=== PATIENT | male | born 1955 | race Caucasian/White ===

== ENCOUNTER 2016-09-07 12:58 | Emergency (ER) | payer OTHER ==
[2016-09-07] MEDS ORDERED: Diphtheria,Pertussis(Acell),Tetanus Vaccine 0.5 ML Syringe IM ONE (13:15)
--- NOTE | 2016-09-07 13:16 | EDM.PDOC ---
ED HPI GENERAL MEDICAL PROBLEM - General Chief Complaint: Laceration Stated Complaint: LACERATION RT HAND Time Seen by Provider: 09/07/16 13:01 Source of Information: Reports: Patient History Limitations: Reports: No Limitations - History of Present Illness INITIAL COMMENTS - FREE TEXT/NARRATIVE: History of present illness: []Patient was trying to install a road sign in automatic screwdriver lacerated his hand between his right index finger and thumb Review of systems: As per history of present illness and below otherwise all systems reviewed and negative. Past medical history: As per history of present illness and as reviewed below otherwise noncontributory. Surgical history: As per history of present illness and as reviewed below otherwise noncontributory. Social history: No reported history of drug or alcohol abuse. Family history: As per history of present illness and as reviewed below otherwise noncontributory. Physical exam: General: Well developed, well nourished in NAD HEENT: Atraumatic, normocephalic, pupils reactive, negative for conjunctival pallor or scleral icterus, mucous membranes moist, throat clear, neck supple, nontender, trachea midline. Lungs: Clear to auscultation, breath sounds equal bilaterally, chest nontender. Heart: S1S2, regular, negative for clicks, rubs, or JVD. Abdomen: Soft, nondistended, nontender. Negative for masses or hepatosplenomegaly. Negative for costovertebral tenderness. Pelvis: Stable nontender. Genitourinary: Deferred. Rectal: Deferred. Extremities: Right hand with a irregular laceration to the subcutaneous tissue between the thumb and index finger., negative for cords or calf pain. Neurovascular unremarkable. Neuro: Awake, alert, oriented. Cranial nerves II through XII unremarkable. Cerebellum unremarkable. Motor and sensory unremarkable throughout. Exam nonfocal. Diagnostics: [] Therapeutics: []Laceration sutured, tetanus given Impression: []Laceration right hand Plan: []Sutures out in 7-10 days return if any signs of infection occur Definitive disposition and diagnosis as appropriate pending reevaluation and review of above. - Related Data Allergies Allergy/AdvReac Type Severity Reaction Status Date / Time No Known Allergies Allergy Verified 09/07/16 13:06 Home Meds: Home Meds Allopurinol [Zyloprim] 300 mg PO DAILY 09/07/16 [History] Gemfibrozil 600 mg PO BID 09/07/16 [History] Lisinopril 20 mg PO DAILY 09/07/16 [History] Simvastatin [Zocor] 20 mg PO BEDTIME 09/07/16 [History] ED ROS GENERAL - Review of Systems Review Of Systems: See Below (See history of present illness) ED EXAM, SKIN/RASH Exam: See Below (See history of present illness) ED SKIN PROCEDURES - Laceration/Wound Repair Right Hand Lac/Wound length In cm: 1.5 Appearance: Subcutaneous Distal NVT: Neuro & Vascular Intact Anesthetic Type: Local Local Anesthesia - Lidocaine (Xylocaine): 1% Plain Local Anesthesia - Bupivicaine (Marcaine): 0.5% Plain Local Anesthetic Volume: 1cc Skin Prep: Saline Closed with: Sutures (5-0 nylon well tolerated) Suture Size: other Drain Placement: No Sterile Dressing Applied: Nurse Tetanus Status Addressed: Yes Complications: No Course - Vital Signs Last Recorded V/S: Last Vital Signs Temp 36.2 C 09/07/16 13:08 Pulse 74 09/07/16 13:08 Resp 18 09/07/16 13:08 BP 154/75 H 09/07/16 13:08 Pulse Ox 96 09/07/16 13:08 - Orders/Labs/Meds Orders: Active Orders 24 hr Category Date Time Status Vaccines to be Administered [RC] PER UNIT ROUTINE Care 09/07/16 13:15 Active Meds: Medications Discontinued Medications Generic Name Dose Route Start Last Admin Trade Name Freq PRN Reason Stop Dose Admin Bacitracin 1 dose 09/07/16 13:23 Bacitracin Oint 1 Gm TOP 09/07/16 13:24 ONETIME ONE Bupivacaine HCl 10 ml 09/07/16 13:19 09/07/16 13:29 Sensorcaine-Mpf 0.5% INJECT 09/07/16 13:20 10 ml ONETIME ONE Administration Diphtheria/Tetanus/Acell Pertussis 0.5 ml 09/07/16 13:15 09/07/16 13:33 Adacel IM 09/07/16 13:16 0.5 ml .ONCE ONE Administration Lidocaine HCl 20 ml 09/07/16 13:19 09/07/16 13:29 Xylocaine 1% INJECT 09/07/16 13:20 20 ml ONETIME ONE Administration Departure - Departure Time of Disposition: 13:43 Disposition: Home, Self-Care 01 Condition: Good Clinical Impression: Laceration of right hand Qualifiers: Encounter type: initial encounter Foreign body presence: without foreign body Qualified Code(s): S61.411A - Laceration without foreign body of right hand, initial encounter - Discharge Information Referrals: PCP,None [Primary Care Provider] - Forms: ED Department Discharge Additional Instructions: The following information is given to patients seen in the emergency department who are being discharged to home. This information is to outline your options for follow-up care. We provide all patients seen in our emergency department with a follow-up referral. The need for follow-up, as well as the timing and circumstances, are variable depending upon the specifics of your emergency department visit. If you don't have a primary care physician on staff, we will provide you with a referral. We always advise you to contact your personal physician following an emergency department visit to inform them of the circumstance of the visit and for follow-up with them and/or the need for any referrals to a consulting specialist. The emergency department will also refer you to a specialist when appropriate. This referral assures that you have the opportunity for follow-up care with a specialist. All of these measure are taken in an effort to provide you with optimal care, which includes your follow-up. Under all circumstances we always encourage you to contact your private physician who remains a resource for coordinating your care. When calling for follow-up care, please make the office aware that this follow-up is from your recent emergency room visit. If for any reason you are refused follow-up, please contact the [facility] Emergency Department at and asked to speak to the emergency department charge nurse. Keep wound dry for 24 hours, Tylenol, ice or Motrin for pain elevate for swelling sutures out in 7-10 days come to the ER for this or go to your primary care. [facility] [address] [place] [id number] - My Orders Last 24 Hours: My Active Orders 09/07/16 13:15 Vaccines to be Administered [RC] PER UNIT ROUTINE - Assessment/Plan Last 24 Hours: My Active Orders 09/07/16 13:15 Vaccines to be Administered [RC] PER UNIT ROUTINE
[2016-09-07] MEDS ORDERED: Lidocaine 1% 20 ML MDV INJECT ONE (13:19)
[2016-09-07] MEDS ORDERED: Bupivacaine 0.5% 10 ML SDV INJECT ONE (13:19)
[2016-09-07] MEDS ORDERED: Bacitracin Oint 1 GM U/D Packet TOP ONE (13:23)
[2016-09-07 14:41] VITALS: BP 113/63
== END 2016-09-07 14:20 | disposition home or self-care (01) ==
LOC: MW.ED 12:58
DX: S61.411A Laceration without foreign body of right hand, initial encounter (principal); Z79.899 Other long term (current) drug therapy; Z23 Encounter for immunization; W27.0XXA Contact with workbench tool, initial encounter
CPT/HCPCS: 12001; 90471; 90715; 99282; 99283-25

== ENCOUNTER 2016-09-14 07:16 | Emergency (ER) | payer OTHER | END 2016-09-14 07:35 | disposition left against medical advice (07) | LOC: MW.ED 07:16 | DX: Z53.21 Procedure and treatment not carried out due to patient leaving prior to being seen by health care provider (principal) ==

== ENCOUNTER 2016-09-17 06:55 | Emergency (ER) | payer OTHER | END 2016-09-17 07:20 | disposition left against medical advice (07) | LOC: MW.ED 06:55 | DX: Z53.21 Procedure and treatment not carried out due to patient leaving prior to being seen by health care provider (principal) ==

== ENCOUNTER 2016-10-04 10:53 | Emergency (ER) | payer OTHER ==
[2016-10-04] MEDS ORDERED: Lidocaine 1% 20 ML MDV INJECT ONE (11:26)
[2016-10-04] MEDS ORDERED: Bacitracin Oint 1 GM U/D Packet TOP ONE (11:26)
--- NOTE | 2016-10-04 11:27 | EDM.PDOC ---
ED HPI GENERAL MEDICAL PROBLEM - General Chief Complaint: Laceration Stated Complaint: INJURY FINGERS ON LT HAND Time Seen by Provider: 10/04/16 11:20 Source of Information: Reports: Patient - History of Present Illness INITIAL COMMENTS - FREE TEXT/NARRATIVE: HISTORY AND PHYSICAL: History of present illness: [Patient is a 60-year-old male that presents to the emergency room today with complaints of a laceration to his left medial fifth digit. 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 Patient was seen 2 weeks ago in the emergency room for a laceration, therefore his tetanus is up-to-date. ] Review of systems: As per history of present illness and below otherwise all systems reviewed and negative. Past medical history: As per history of present illness and as reviewed below otherwise noncontributory. Surgical history: As per history of present illness and as reviewed below otherwise noncontributory. Social history: No reported history of drug or alcohol abuse. Family history: As per history of present illness and as reviewed below otherwise noncontributory. Physical exam: Gen.: Well-developed well-nourished male. Speaking in full sentences. HEENT: Atraumatic, normocephalic, pupils reactive, negative for conjunctival pallor or scleral icterus, mucous membranes moist, throat clear, neck supple, nontender, trachea midline. Lungs: Clear to auscultation, breath sounds equal bilaterally, chest nontender. Heart: S1S2, regular, negative for clicks, rubs, or JVD. Abdomen: Soft, nondistended, nontender. Negative for masses or hepatosplenomegaly. Negative for costovertebral tenderness. Pelvis: Stable nontender. Genitourinary: Deferred. Rectal: Deferred. Extremities: 2-1/2 cm laceration to the left medial fifth digit at MCP. No current bleeding. No tendon involvement noted. Patient is able to grasp, and fully extend all digits without difficulty. No numbness or tingling noted. Neurovascular unremarkable. Neuro: Awake, alert, oriented. Cranial nerves II through XII unremarkable. Cerebellum unremarkable. Motor and sensory unremarkable throughout. Exam nonfocal. Diagnostics: [L 5th finger xray] Therapeutics: [1% lidocaine for injection Bacitracin] Impression: [L 5th finger laceration] Plan: [Rx written for cephalexin 500mg (#15) si po TID 0 RF's. Return to ER in 7- 10 days for suture removal. Strict return precautions are discussed. ] Definitive disposition and diagnosis as appropriate pending reevaluation and review of above. Onset: Today Onset Date: 10/04/16 Onset Time: 10:30 Duration: Minutes: Location: Reports: Upper Extremity, Left - Related Data Allergies Allergy/AdvReac Type Severity Reaction Status Date / Time No Known Allergies Allergy Verified 09/17/16 07:03 Home Meds: Home Meds Allopurinol [Zyloprim] 300 mg PO DAILY 09/07/16 [History] Gemfibrozil 600 mg PO BID 09/07/16 [History] Lisinopril 20 mg PO DAILY 09/07/16 [History] Simvastatin [Zocor] 20 mg PO BEDTIME 09/07/16 [History] Past Medical History - Past Health History Medical/Surgical History: Denies Medical/Surgical History HEENT History: Reports: Hard of Hearing, Other (See Below) Other HEENT History: hEARING LOSS Cardiovascular History: Reports: High Cholesterol, Hypertension Musculoskeletal History: Reports: Gout Endocrine/Metabolic History: Reports: Obesity/BMI 30+ Social & Family History - Family History Family Medical History: Noncontributory - Tobacco Use Smoking Status *Q: Former Smoker Used Tobacco, but Quit: Yes Month Tobacco Last Used: 09/1999 - Caffeine Use Caffeine Use: Reports: Soda - Recreational Drug Use Recreational Drug Use: No ED ROS GENERAL - Review of Systems Review Of Systems: ROS reveals no pertinent complaints other than HPI. ED EXAM, SKIN/RASH Exam: See Below (See history of present illness) ED SKIN PROCEDURES - Laceration/Wound Repair Left Lower Medial Finger Lac/Wound length In cm: 2.5 Appearance: Subcutaneous, Linear Anesthetic Type: Local Local Anesthesia - Lidocaine (Xylocaine): 1% Plain Local Anesthetic Volume: 4cc Skin Prep: Chlorhexidine (Hibiciens), Saline, Sterile Drape Exploration/Debridement/Repair: Wound Explored, In a Bloodless Field Closed with: Sutures Suture Size: 4-0 # of Sutures: 5 Suture Type: Nylon, Interrupted Sterile Dressing Applied: Nurse Tetanus Status Addressed: Yes Complications: No Course - Vital Signs Last Recorded V/S: Last Vital Signs Temp 96.5 F 10/04/16 11:01 Pulse 75 10/04/16 11:01 Resp 18 10/04/16 11:01 BP 158/84 H 10/04/16 11:01 Pulse Ox 95 10/04/16 11:01 - Orders/Labs/Meds Meds: Medications Discontinued Medications Generic Name Dose Route Start Last Admin Trade Name Nicolas PRN Reason Stop Dose Admin Bacitracin 1 dose 10/04/16 11:26 10/04/16 11:30 Bacitracin Oint 1 Gm TOP 10/04/16 11:27 1 dose ONETIME ONE Administration Lidocaine HCl 20 ml 10/04/16 11:26 10/04/16 11:30 Xylocaine 1% INJECT 10/04/16 11:27 20 ml ONETIME ONE Administration Departure - Departure Time of Disposition: 12:05 Disposition: Home, Self-Care 01 Condition: Good Clinical Impression: Finger laceration - Discharge Information Forms: ED Department Discharge Additional Instructions: The following information is given to patients seen in the emergency department who are being discharged to home. This information is to outline your options for follow-up care. We provide all patients seen in our emergency department with a follow-up referral. The need for follow-up, as well as the timing and circumstances, are variable depending upon the specifics of your emergency department visit. If you don't have a primary care physician on staff, we will provide you with a referral. We always advise you to contact your personal physician following an emergency department visit to inform them of the circumstance of the visit and for follow-up with them and/or the need for any referrals to a consulting specialist. The emergency department will also refer you to a specialist when appropriate. This referral assures that you have the opportunity for follow-up care with a specialist. All of these measure are taken in an effort to provide you with optimal care, which includes your follow-up. Under all circumstances we always encourage you to contact your private physician who remains a resource for coordinating your care. When calling for follow-up care, please make the office aware that this follow-up is from your recent emergency room visit. If for any reason you are refused follow-up, please contact the [facility] emergency department at and asked to speak to the emergency department charge nurse. [facility] [address] [place] [id number] Follow-up with your local primary care provider or the clinic listed above in 48 -72 hours. Please take the antibiotics as prescribed. Return for signs of infection as discussed. Keep the wound clean and dry. Return for suture removal in 7-10 days. return to the ER as needed as discussed.
--- NOTE | 2016-10-04 11:54 | CR ---
Left hand Bony anatomy is without evidence of acute injury. Given history of laceration no abnormality of the fifth digit is identified. Impression: No bony abnormality
[2016-10-04 13:49] VITALS: BP 127/72
== END 2016-10-04 12:26 | disposition home or self-care (01) ==
LOC: MW.ED 10:53
DX: S61.217A Laceration without foreign body of left little finger without damage to nail, initial encounter (principal); E78.00 Pure hypercholesterolemia, unspecified; I10 Essential (primary) hypertension; E66.9 Obesity, unspecified; Z87.891 Personal history of nicotine dependence; Z79.899 Other long term (current) drug therapy; Z68.34 Body mass index [BMI] 34.0-34.9, adult; W26.8XXA Contact with other sharp object(s), not elsewhere classified, initial encounter
CPT/HCPCS: 12001; 73140-26-F4; 73140-F4; 99283

== ENCOUNTER 2016-10-13 07:39 | Emergency (ER) | payer OTHER ==
[2016-10-13 07:49] VITALS: BP 138/79
== END 2016-10-13 08:01 | disposition left against medical advice (07) ==
LOC: MW.ED 07:39
DX: Z53.21 Procedure and treatment not carried out due to patient leaving prior to being seen by health care provider (principal)

== ENCOUNTER 2022-12-02 15:55 | Emergency (ER) | payer MEDICARE, OTHER ==
[2022-12-02] MEDS ORDERED: Metoprolol Tartrate 5 MG/5 ML SDV IVPUSH ONE ×2 (16:00→16:39)
[2022-12-02] MEDS ORDERED: Sodium Chloride 0.9% 1,000 ML IV ONE (16:06)
[2022-12-02 16:17] LABS: BASOPHILS ABSOLUTE AUTO 0.06 K/uL (0.00-0.20); BASOPHILS PERCENT AUTO 0.7 % (0.0-1.0); EOSINOPHILS ABSOLUTE AUTO 0.15 K/uL (0.00-0.45); EOSINOPHILS PERCENT AUTO 1.8 % (0.0-6.0); HEMATOCRIT 45.2 % (42.0-52.0); HEMOGLOBIN 15.7 g/dL (14.0-18.0); IMMATURE GRAN ABSOLUTE AUTO 0.01 K/uL (0.00-0.05); IMMATURE GRAN PERCENT AUTO 0.1 % (0.0-0.4); LYMPHOCYTES ABSOLUTE AUTO 3.49 K/uL (1.00-4.80); MEAN CORPUSCULAR HEMOGLOBIN 31.5 pg (28.0-32.0); MEAN CORPUSCULAR HGB CONC 34.7 g/dL (32.0-36.0); MEAN CORPUSCULAR VOLUME 90.6 fL (83.0-99.0); MEAN PLATELET VOLUME 9.4 fL (9.4-12.4); MONOCYTES ABSOLUTE AUTO 0.82 K/uL (0.00-0.80); MONOCYTES PERCENT AUTO 10.1 % (0.0-8.0); NEUTROPHILS ABSOLUTE AUTO 3.58 K/uL (1.80-7.70); NEUTROPHILS PERCENT AUTO 44.3 % (41.0-71.0); PLATELET COUNT,PLT 236 K/uL (150-400); RED BLOOD CELL COUNT 4.99 M/uL (4.52-5.90); WHITE BLOOD CELL COUNT,WBC 8.11 K/uL (3.9-11.3)
[2022-12-02 16:31] LABS: INR 1.02 (0.86-1.11)
[2022-12-02 16:50] LABS: A/G RATIO 1.1 (0.9-1.6); ALBUMIN 4.2 g/dL (3.4-5.0); BILIRUBIN TOTAL 0.2 mg/dL (0.2-1.0); CALCIUM 9.7 mg/dL (8.5-10.1); CARBON DIOXIDE,CO2 22.3 mmol/L (21.0-32.0); CREATININE 1.8 mg/dL (0.8-1.3); EST CRCL DRUG DOSING (CG) 39.06 mL/min; POTASSIUM,K 4.4 mmol/L (3.5-5.1); PROTEIN TOTAL,TP 8.1 g/dL (6.4-8.2); TSH ULTRASENSITIVE 3.07 uIU/mL (0.36-3.74)
[2022-12-02 18:08] VITALS: BP 135/75; PULSE 55
== END 2022-12-02 18:08 | disposition home or self-care (01) ==
LOC: MW.ED 15:55
DX: I47.10 Supraventricular tachycardia, unspecified (principal); E66.9 Obesity, unspecified; E78.00 Pure hypercholesterolemia, unspecified; I10 Essential (primary) hypertension; E11.9 Type 2 diabetes mellitus without complications; Z79.82 Long term (current) use of aspirin; Z79.899 Other long term (current) drug therapy; Z79.4 Long term (current) use of insulin; Z68.36 Body mass index [BMI] 36.0-36.9, adult
CPT/HCPCS: 36415; 80053; 84443; 84484; 85025; 85610; 85730; 93005; 96361; 96374; 99285; J3490; J7030; 93010; 99284

== ENCOUNTER 2024-04-17 09:04 | Day surgery (SDC) | payer MEDICARE, OTHER ==
[~2024-04-17 09:04] MED LIST: Sodium Chloride 0.9% 10 ML Syringe FLUSH PRN; Sodium Chloride 0.9% 2.5 ML Syringe FLUSH PRN; Sodium Chloride 0.9% 20 ML SDV IV PRN
[2024-04-17] MEDS: Lactated Ringers 1,000 ML IV SCH (09:37)
[2024-04-17] MEDS ORDERED: propofoL 500 MG/50 ML 50 ML ONE (09:57)
[2024-04-17] MEDS ORDERED: Ketamine HCL/NACL, ISO-OSM 50 MG/5 ML Syringe ONE (10:40)
[2024-04-17 11:33] VITALS: PULSE 50
[2024-04-17 13:23] VITALS: BP 111/78
== END 2024-04-17 12:05 | disposition home or self-care (01) ==
LOC: MW.SDS 09:04
PROVIDERS: ATTEND Surgery
DX: Z12.11 Encounter for screening for malignant neoplasm of colon (principal); D12.3 Benign neoplasm of transverse colon; D12.5 Benign neoplasm of sigmoid colon; K57.30 Diverticulosis of large intestine without perforation or abscess without bleeding; Z86.0100 Personal history of colon polyps, unspecified; I10 Essential (primary) hypertension; E78.2 Mixed hyperlipidemia; N40.0 Benign prostatic hyperplasia without lower urinary tract symptoms; I48.91 Unspecified atrial fibrillation; Z87.891 Personal history of nicotine dependence; Z79.82 Long term (current) use of aspirin; Z79.899 Other long term (current) drug therapy; Z79.01 Long term (current) use of anticoagulants
CPT/HCPCS: 45380; 88305; J2704; J7120; 00811; J3490